=== PATIENT | female | born 1995 | race Caucasian/White ===

== ENCOUNTER 2017-08-28 07:14 | Emergency (ER) | payer BC, OTHER ==
--- NOTE | 2017-08-28 07:47 | ED Physician Documentation ---
PD HPI ABD PAIN - Stated complaint Stated Complaint: ABD PX - Chief complaint Chief Complaint: Abd Pain - History obtained from History obtained from: Patient, Family - History of Present Illness Timing - onset: Last night Timing - duration: Hours Timing - details: Gradual onset, Still present Quality: Sharp, Fullness/distended, Pain Location: RLQ Improved by: Laying still Worsened by: Position, Palpation Associated symptoms: Nausea. No: Vomiting Similar symptoms before: Diagnosis (R ovarian cyst) Recently seen: Not recently seen - Additional information Additional information: 22-year-old female with history of polycystic ovarian cyst disease and a prior history of a right 5 cm complex ovarian cyst has developed pain again in the right lower quadrant. She has been without an issue of pain over the past year and has had regular menstrual cycles. She did not have a regular menstrual cycle at the beginning of last month she has taken a test and the reference line did not show up. She denies any breast tenderness but does state that she has had some nausea. Review of Systems Constitutional: denies: Fever Eyes: denies: Decreased vision Ears: denies: Ear pain Nose: reports: Rhinorrhea / runny nose, Congestion Throat: denies: Sore throat Cardiac: denies: Chest pain / pressure, Palpitations Respiratory: reports: Cough. denies: Dyspnea GI: reports: Abdominal Pain, Nausea. denies: Vomiting : denies: Dysuria, Frequency Skin: denies: Rash Musculoskeletal: denies: Neck pain, Back pain, Extremity pain Neurologic: denies: Generalized weakness, Focal weakness, Numbness PD PAST MEDICAL HISTORY - Past Medical History FABRICATION SPECIALIST: Ovarian cysts - Past Surgical History Past Surgical History: Yes General: Cholecystectomy - Present Medications Home Medications: Ambulatory Orders Medication Instructions Recorded Confirmed Metformin HCl 500 mg 06/07/14 05/14/15 HYDROcod/ACETAM 5/325 [[place] 5/325] 1 - 2 ea PO Q6H PRN #15 tablet 05/14/15 HYDROcod/ACETAM 5/325 [[place] 5/325] 1 - 2 ea PO Q6H PRN #15 tablet 08/28/17 - Allergies Allergies/Adverse Reactions: Allergies Allergy/AdvReac Type Severity Reaction Status Date / Time No Known Drug Allergies Allergy Verified 06/07/14 11:31 - Social History Does the pt smoke?: No Smoking Status: Never smoker Does the pt drink ETOH?: No - Immunizations Immunizations are current?: No PD ED PE NORMAL - Vitals Vital signs reviewed: Yes (Hypertensive) - General General: Alert and oriented X 3, No acute distress, Well developed/nourished - HEENT HEENT: Atraumatic, PERRL, EOMI - Neck Neck: Supple, no meningeal sign - Cardiac Cardiac: RRR, No murmur - Respiratory Respiratory: No respiratory distress, Clear bilaterally - Abdomen Abdomen: Soft, Other (There is specific tenderness to the right lower quadrant below McBurney's point. ) - Back Back: No CVA TTP, No spinal TTP - Derm Derm: Normal color, Warm and dry, No rash - Extremities Extremities: No deformity, No edema - Neuro Neuro: No motor deficit, No sensory deficit Eye Opening: Spontaneous Motor: Obeys Commands Verbal: Oriented GCS Score: 15 - Psych Psych: Normal mood, Normal affect Results - Vitals Vitals: Vital Signs - 24 hr 08/28/17 08/28/17 07:19 10:57 Temperature 36.2 C L Heart Rate 75 57 L Respiratory 18 18 Rate Blood Pressure 151/101 H 131/75 H O2 Saturation 98 100 Oxygen O2 Source Room air - Labs Labs: Laboratory Tests 08/28/17 08/28/17 08/28/17 07:30 07:45 07:45 WBC 9.7 RBC 4.81 Hgb 14.7 Hct 42.2 MCV 87.7 MCH 30.5 MCHC 34.8 RDW 12.5 Plt Count 214 MPV 8.9 Neut # (Auto) 5.2 Lymph # (Auto) 3.4 [place] # (Auto) 1.0 Eos # (Auto) 0.1 Baso # (Auto) 0.0 Absolute Nucleated RBC 0.00 Nucleated RBC % 0.0 Sodium 135 Potassium 3.5 Chloride 101 Carbon Dioxide 26 Anion Gap 8.0 BUN 12 Creatinine 0.8 Estimated GFR (MDRD) 88 L Glucose 89 Calcium 9.0 Total Bilirubin 0.7 AST 21 ALT 19 Alkaline Phosphatase 60 Total Protein 7.6 Albumin 4.4 Globulin 3.2 Albumin/Globulin Ratio 1.4 Lipase 36 Urine Color YELLOW Urine Clarity HAZY Urine pH 6.5 Ur Specific [place] 1.025 Urine Protein NEGATIVE Urine Glucose (UA) NEGATIVE Urine Ketones NEGATIVE Urine Occult Blood NEGATIVE Urine Nitrite NEGATIVE Urine Bilirubin NEGATIVE Urine Urobilinogen 0.2 (NORMAL) Ur Leukocyte Esterase TRACE H Urine RBC None Seen Urine WBC 4-5 Ur Squamous Epith Cells MOD Squamous H Urine Bacteria Few Ur Microscopic Review INDICATED Urine Culture Comments NOT INDICATED Urine HCG, Qual NEGATIVE - Rads (name of study) pelvic ultrasound Radiology: Prelim report reviewed (Impression: 4.7 right ovarian cyst, normal flow to bilateral ovaries, no torsion, normal uterus.), EMP read indepedently, See rad report Procedures - Bedside sono Bedside sono by EMP: With use of bedside ultrasound the pelvis is imaged there is a 5 cm cystic mass in the right lower quadrant. PD MEDICAL DECISION MAKING - ED course Complexity details: reviewed results, re-evaluated patient, considered differential, d/w patient ED course: 22-year-old female with a history of polycystic ovarian disease has right lower quadrant pelvic pain and on ultrasound examination a 4.7 cm right ovarian cyst. She has improvement in her pain with use of fentanyl and Toradol and we will place her on some pain medication for a brief period. Departure - Departure Disposition: 01 Home, Self Care Clinical Impression: Ovarian cyst Qualifiers: Laterality: right Qualified Code(s): N83.201 - Unspecified ovarian cyst, right side Condition: Stable Instructions: ED Cyst Ovarian Follow-Up: [facility] [Provider Group] Prescriptions: HYDROcod/ACETAM 5/325 [[place] 5/325] 1 - 2 ea PO Q6H PRN #15 tablet PRN Reason: Pain Forms: Activity restrictions
[2017-08-28] MEDS ORDERED: ONDANSETRON 4 MG/2 ML VIAL IVP STA (07:52)
[2017-08-28] MEDS ORDERED: KETOROLAC 60 MG/2 ML VIAL IVP STA (07:52)
[2017-08-28 07:57] LABS: BASOPHILS % (AUTO) 0.1 %; EOSINOPHILS # (AUTO) 0.1 10^3/uL (0.0-0.7); EOSINOPHILS % (AUTO) 0.7 %; HGB - HEMOGLOBIN 14.7 g/dL (12.0-16.0); LYMPHOCYTES # (AUTO) 3.4 10^3/uL (1.5-3.5); LYMPHOCYTES % (AUTO) 35.3 %; MEAN CORPUSCULAR HEMOGLOBIN 30.5 pg (27.0-31.0); MEAN CORPUSCULAR HGB CONC 34.8 g/dL (32.0-36.0); MEAN CORPUSCULAR VOLUME 87.7 fL (81.0-99.0); MEAN PLATELET VOLUME 8.9 fL (7.9-10.8); MONOCYTES % (AUTO) 10.3 %; NEUTROPHILS # (AUTO) 5.2 10^3/uL (1.5-6.6); NEUTROPHILS % (AUTO) 53.6 %; PLT - PLATELET COUNT 214 10^3/uL (130-450); RED BLOOD COUNT 4.81 10^6/uL (4.20-5.40); RED CELL DISTRIBUTION WIDTH 12.5 % (12.0-15.0); WHITE BLOOD COUNT 9.7 x10^3/uL (4.8-10.8)
[2017-08-28 07:59] LABS: BILIRUBIN,URINE NEGATIVE (NEGATIVE); GLUCOSE, URINE (UA) NEGATIVE (NEGATIVE); KETONES,URINE (UA) NEGATIVE (NEGATIVE); LEUKOCYTE ESTERASE, URINE TRACE (NEGATIVE); NITRITE,URINE NEGATIVE (NEGATIVE); OCCULT BLOOD,URINE NEGATIVE (NEGATIVE); PH,URINE 6.5 PH (5.0-7.5); PROTEIN,URINE NEGATIVE (NEGATIVE); UROBILINOGEN,URINE 0.2 (NORMAL) E.U./dL (NORMAL)
[2017-08-28 08:00] LABS: CLARITY,URINE HAZY (CLEAR)
[2017-08-28 08:01] LABS: HCG UR QUAL NEGATIVE
[2017-08-28 08:10] LABS: ALBUMIN 4.4 g/dL (3.2-5.5); ALBUMIN/GLOBULIN RATIO 1.4 (1.0-2.2); BILIRUBIN,TOTAL 0.7 mg/dL (0.2-1.0); CREATININE 0.8 mg/dL (0.4-1.0); TOTAL PROTEIN 7.6 g/dL (6.7-8.2)
[2017-08-28 08:10] LABS: BACTERIA,URINE Few /HPF (None Seen); RBC,URINE None Seen /HPF (0-5); SQUAMOUS EPITHELIAL CELL,UR MOD Squamous (<= Few)
[2017-08-28] MEDS ORDERED: fentaNYL 100 MCG/2 ML VIAL IVP STA ×2 (08:53→11:39)
--- NOTE | 2017-08-28 11:25 | Ultrasound Report ---
PELVIC ULTRASOUND: 08/28/2017 CLINICAL INDICATION: Right-sided pain. TECHNIQUE: Transabdominal pelvic ultrasound performed for global evaluation. Transvaginal pelvic ultrasound performed for detailed evaluation. Real-time scanning performed and static images obtained with Doppler. FINDINGS: The uterus is anteverted, measuring 8.3 x 3.5 x 4.9 cm. The endometrium measures 11 mm. No focal myometrial lesion is seen. The right ovary measures 5.7 x 4.7 x 4.5 cm, and contains a 4.7 x 4.3 x 4.2 cm cyst. Normal flow is seen to the surrounding ovarian parenchyma. The left ovary measures 2.3 x 1.6 x 1.3 cm, and appears unremarkable. No free fluid is present. IMPRESSION: 4.7 CM RIGHT OVARIAN CYST. NORMAL FLOW TO THE SURROUNDING OVARIAN TISSUE. TD: 08/28/2017 10:49
[2017-08-28] MEDS ORDERED: fentaNYL 100 MCG/2 ML VIAL ONE (11:48)
[2017-08-28 11:50] VITALS: BP 128/74
== END 2017-08-28 11:51 | disposition home or self-care (01) ==
LOC: ED 07:14
DX: N83.201 Unspecified ovarian cyst, right side (principal)
CPT/HCPCS: 36415; 76830; 76856; 80053; 81001; 81003; 81025; 83690; 85025; 87086; 93976; 96374; 96375; 96376; 99283; 99284

== ENCOUNTER 2017-09-16 13:40 | Emergency (ER) | payer BC ==
[2017-09-16 14:08] LABS: BILIRUBIN,URINE NEGATIVE (NEGATIVE); GLUCOSE, URINE (UA) NEGATIVE (NEGATIVE); KETONES,URINE (UA) NEGATIVE (NEGATIVE); LEUKOCYTE ESTERASE, URINE TRACE (NEGATIVE); NITRITE,URINE NEGATIVE (NEGATIVE); OCCULT BLOOD,URINE SMALL (NEGATIVE); PH,URINE 6.5 PH (5.0-7.5); PROTEIN,URINE NEGATIVE (NEGATIVE); UROBILINOGEN,URINE 0.2 (NORMAL) E.U./dL (NORMAL)
[2017-09-16 14:09] LABS: CLARITY,URINE HAZY (CLEAR); HCG UR QUAL NEGATIVE
[2017-09-16 14:14] LABS: BACTERIA,URINE Few /HPF (None Seen); SQUAMOUS EPITHELIAL CELL,UR FEW Squamous (<= Few)
--- NOTE | 2017-09-16 14:34 | ED Physician Documentation ---
PD HPI FEMALE - Stated complaint Stated Complaint: FEMALE - Chief complaint Chief Complaint: UTI - History obtained from History obtained from: Patient - History of Present Illness Timing - onset: How many days ago (3) Timing - duration: Days (3) Timing - details: Gradual onset, Still present, Waxing and waning Associated symptoms: Abdominal pain, Dysuria, Urinary frequency Contributing factors: No: Similar symptoms before: Diagnosis (UTI) Recently seen: Emergency Dept - Additional information Additional information: 22-year-old female with a history of polycystic ovarian disease was recently been in the emergency department for right ovarian cyst has developed urinary symptoms with urinary urgency frequency and dysuria. She is not having flank pain she is not having fever she is having some intermittent nausea associated with bladder pain. Review of Systems Constitutional: reports: Chills. denies: Fever Eyes: denies: Decreased vision Ears: denies: Ear pain Nose: denies: Congestion Throat: denies: Sore throat Respiratory: denies: Cough GI: reports: Abdominal Pain, Nausea. 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 - Past Surgical History Past Surgical History: Yes General: Cholecystectomy - Present Medications Home Medications: Ambulatory Orders Medication Instructions Recorded Confirmed Sulfamethoxazole/Trimethoprim 1 each PO BID #10 tablet 09/16/17 [Sulfamethoxazole-Tmp Ds Tablet] - Allergies Allergies/Adverse Reactions: Allergies Allergy/AdvReac Type Severity Reaction Status Date / Time No Known Drug Allergies Allergy Verified 06/07/14 11:31 - Social History Does the pt smoke?: No Smoking Status: Never smoker Does the pt drink ETOH?: No Does the pt have substance abuse?: No - Immunizations Immunizations are current?: No - POLST Patient has POLST: No PD ED PE NORMAL - Vitals Vital signs reviewed: Yes (hypertensive ) - General General: Alert and oriented X 3, No acute distress, Well developed/nourished - HEENT HEENT: Atraumatic, PERRL, EOMI - Neck Neck: Supple, no meningeal sign - Cardiac Cardiac: RRR, No murmur - Respiratory Respiratory: No respiratory distress, Clear bilaterally - Abdomen Abdomen: Soft, Non tender - Back Back: No CVA TTP, No spinal TTP - Derm Derm: Normal color, Warm and dry, No rash - Extremities Extremities: No deformity, No edema - Neuro Neuro: Alert and oriented X 3, No motor deficit, No sensory deficit, Normal speech Eye Opening: Spontaneous Motor: Obeys Commands Verbal: Oriented GCS Score: 15 - Psych Psych: Normal mood, Normal affect Results - Vitals Vitals: Vital Signs - 24 hr 09/16/17 13:48 Temperature 36.3 C L Heart Rate 91 Respiratory 18 Rate Blood Pressure 142/92 H O2 Saturation 100 Oxygen O2 Source Room air - Labs Labs: Laboratory Tests 09/16/17 14:03 Urine Color YELLOW Urine Clarity HAZY Urine pH 6.5 Ur Specific [place] 1.020 Urine Protein NEGATIVE Urine Glucose (UA) NEGATIVE Urine Ketones NEGATIVE Urine Occult Blood SMALL H Urine Nitrite NEGATIVE Urine Bilirubin NEGATIVE Urine Urobilinogen 0.2 (NORMAL) Ur Leukocyte Esterase TRACE H Urine RBC 6-10 H Urine WBC 11-25 H Ur Squamous Epith Cells FEW Squamous Urine Bacteria Few Ur Microscopic Review INDICATED Urine Culture Comments INDICATED Urine HCG, Qual NEGATIVE PD MEDICAL DECISION MAKING - ED course Complexity details: reviewed results, re-evaluated patient, considered differential, d/w patient, d/w family ED course: 22-year-old female with urinary tract infection is administered Pyridium here in the emergency department for acute symptoms and we will start her on some sulfamethoxazole trimethoprim. - Sepsis Event Vital Signs: Vital Signs - 24 hr 09/16/17 13:48 Temperature 36.3 C L Heart Rate 91 Respiratory 18 Rate Blood Pressure 142/92 H O2 Saturation 100 Oxygen O2 Source Room air Departure - Departure Disposition: 01 Home, Self Care Clinical Impression: Urinary tract infection Qualifiers: Urinary tract infection type: acute cystitis Hematuria presence: without hematuria Qualified Code(s): N30.00 - Acute cystitis without hematuria Condition: Stable Instructions: ED UTI Cystitis Female Follow-Up: [facility] [Provider Group] Prescriptions: Sulfamethoxazole/Trimethoprim [Sulfamethoxazole-Tmp Ds Tablet] 1 each PO BID # 10 tablet
[2017-09-16] MEDS ORDERED: PHENAZOPYRIDINE 100 MG TABLET PO STA (14:37)
[2017-09-16 14:48] VITALS: BP 130/90
== END 2017-09-16 14:47 | disposition home or self-care (01) ==
LOC: ED 13:40
DX: N30.00 Acute cystitis without hematuria (principal)
CPT/HCPCS: 81001; 81025; 87086; 87181; 99283; A9270; 81003

== ENCOUNTER 2017-11-10 22:44 | Emergency (ER) | payer BC ==
[2017-11-10] MEDS ORDERED: SODIUM CHLORIDE 0.9% 1,000 ML IV ONE (22:57)
[2017-11-10] MEDS ORDERED: METOCLOPRAMIDE 10 MG/2 ML VIAL IVP STA (22:57)
[2017-11-10 23:13] LABS: BILIRUBIN,URINE NEGATIVE (NEGATIVE); GLUCOSE, URINE (UA) NEGATIVE (NEGATIVE); KETONES,URINE (UA) NEGATIVE (NEGATIVE); LEUKOCYTE ESTERASE, URINE NEGATIVE (NEGATIVE); NITRITE,URINE NEGATIVE (NEGATIVE); OCCULT BLOOD,URINE NEGATIVE (NEGATIVE); PROTEIN,URINE NEGATIVE (NEGATIVE); UROBILINOGEN,URINE 0.2 (NORMAL) E.U./dL (NORMAL)
[2017-11-10 23:15] LABS: CLARITY,URINE CLEAR (CLEAR)
[2017-11-10 23:20] LABS: BASOPHILS % (AUTO) 0.1 %; EOSINOPHILS % (AUTO) 0.2 %; HGB - HEMOGLOBIN 14.9 g/dL (12.0-16.0); LYMPHOCYTES # (AUTO) 3.8 10^3/uL (1.5-3.5); LYMPHOCYTES % (AUTO) 32.2 %; MEAN CORPUSCULAR HEMOGLOBIN 30.4 pg (27.0-31.0); MEAN CORPUSCULAR VOLUME 89.5 fL (81.0-99.0); MEAN PLATELET VOLUME 8.6 fL (7.9-10.8); MONOCYTES # (AUTO) 0.7 10^3/uL (0.0-1.0); MONOCYTES % (AUTO) 6.3 %; NEUTROPHILS # (AUTO) 7.2 10^3/uL (1.5-6.6); NEUTROPHILS % (AUTO) 61.2 %; PLT - PLATELET COUNT 237 10^3/uL (130-450); RED BLOOD COUNT 4.88 10^6/uL (4.20-5.40); RED CELL DISTRIBUTION WIDTH 14.8 % (12.0-15.0); WHITE BLOOD COUNT 11.8 x10^3/uL (4.8-10.8)
[2017-11-10] MEDS ORDERED: fentaNYL 100 MCG/2 ML VIAL IVP STA (23:20)
[2017-11-10 23:37] LABS: ALBUMIN 4.5 g/dL (3.2-5.5); ALBUMIN/GLOBULIN RATIO 1.3 (1.0-2.2); BILIRUBIN,TOTAL 0.9 mg/dL (0.2-1.0); CALCIUM 9.1 mg/dL (8.5-10.3); CREATININE 0.7 mg/dL (0.4-1.0); MAGNESIUM 2.1 mg/dL (1.7-2.8); TOTAL PROTEIN 7.9 g/dL (6.7-8.2)
[2017-11-10 23:45] LABS: HCG,QUALITATIVE BLOOD NEGATIVE
[2017-11-11] MEDS ORDERED: KETOROLAC 60 MG/2 ML VIAL IVP STA (00:19)
[2017-11-11] MEDS ORDERED: PROMETHAZINE INJ 25 MG in SODIUM CHLORIDE 0.9% 50 ML IV STA (00:19)
--- NOTE | 2017-11-11 01:20 | ED Physician Documentation ---
History of Present Illness - Stated complaint Stated Complaint: LOW ABD PX - Chief complaint Chief Complaint: Abd Pain - Additonal information Additional information: 22-year-old female presents to the emergency department complaining of lower abdominal pain which started this evening 45 minutes prior to arrival in the emergency department. The patient reports drinking alcohol this evening and then having sex. The patient reports the pain started after sex. The patient denies Vaginal bleeding, vaginal discharge, dysuria or diarrhea. No relieving factors. No attempts at symptom management. No other associated symptoms. 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, Other Other Past Medical History: PCOS - Past Surgical History Past Surgical History: Yes General: Cholecystectomy /MARKETING FINANCIAL ANALYST: Other - Present Medications Home Medications: Ambulatory Orders Medication Instructions Recorded Confirmed No Known Home Medications [No 11/10/17 11/10/17 Known Home Medications] - Allergies Allergies/Adverse Reactions: Allergies Allergy/AdvReac Type Severity Reaction Status Date / Time No Known Drug Allergies Allergy Verified 11/10/17 22:54 - Social History Does the pt smoke?: No Smoking Status: Never smoker Does the pt drink ETOH?: Yes Does the pt have substance abuse?: No - Immunizations Immunizations are current?: No - POLST Patient has POLST: No PD ED PE NORMAL - General General: Alert and oriented X 3, Other (The patient appears to be in pain and discomfort) - HEENT HEENT: Atraumatic, PERRL, EOMI, Ears normal - Neck Neck: Supple, no meningeal sign - Cardiac Cardiac: RRR, Strong equal pulses, Other (Tachycardia) - Respiratory Respiratory: No respiratory distress, Clear bilaterally - Abdomen Abdomen: Soft, Non distended. No: Non tender (The patient is tender to palpation throughout her entire abdomen, there is no rebound or peritoneal signs ) - Derm Derm: Normal color - Extremities Extremities: No deformity, No edema - Neuro Neuro: Alert and oriented X 3, Normal speech - Psych Psych: Normal mood Results - Vitals Vitals: Vital Signs - 24 hr 11/10/17 11/10/17 11/11/17 22:48 23:53 00:20 Temperature 36.6 C Heart Rate 106 H 68 76 Respiratory 18 16 18 Rate Blood Pressure 153/111 H 106/66 132/75 H O2 Saturation 96 98 100 11/11/17 01:55 Temperature Heart Rate 66 Respiratory 17 Rate Blood Pressure 121/91 H O2 Saturation 100 Oxygen O2 Source Room air - Labs Labs: Laboratory Tests 11/10/17 11/10/17 11/10/17 23:07 23:10 23:10 WBC 11.8 H RBC 4.88 Hgb 14.9 Hct 43.7 MCV 89.5 MCH 30.4 MCHC 34.0 RDW 14.8 Plt Count 237 MPV 8.6 Neut # (Auto) 7.2 H Lymph # (Auto) 3.[address] [place] # (Auto) 0.7 Eos # (Auto) 0.0 Baso # (Auto) 0.0 Absolute Nucleated RBC 0.00 Nucleated RBC % 0.0 Sodium 138 Potassium 3.3 L Chloride 103 Carbon Dioxide 24 Anion Gap 11.0 BUN 5 L Creatinine 0.7 Estimated GFR (MDRD) 103 Glucose 92 Calcium 9.1 Magnesium 2.1 Total Bilirubin 0.9 AST 24 ALT 17 Alkaline Phosphatase 61 Total Protein 7.9 Albumin 4.5 Globulin 3.4 Albumin/Globulin Ratio 1.3 Lipase 308 H Serum HCG, Qual Urine Color YELLOW Urine Clarity CLEAR Urine pH 6.0 Ur Specific [place] <=1.005 Urine Protein NEGATIVE Urine Glucose (UA) NEGATIVE Urine Ketones NEGATIVE Urine Occult Blood NEGATIVE Urine Nitrite NEGATIVE Urine Bilirubin NEGATIVE Urine Urobilinogen 0.2 (NORMAL) Ur Leukocyte Esterase NEGATIVE Ur Microscopic Review NOT INDICATED Urine Culture Comments NOT INDICATED 11/10/17 11/11/17 23:10 01:35 WBC RBC Hgb Hct MCV MCH MCHC RDW Plt Count MPV Neut # (Auto) Lymph # (Auto) [place] # (Auto) Eos # (Auto) Baso # (Auto) Absolute Nucleated RBC Nucleated RBC % Sodium Potassium Chloride Carbon Dioxide Anion Gap BUN Creatinine Estimated GFR (MDRD) Glucose Calcium Magnesium Total Bilirubin AST ALT Alkaline Phosphatase Total Protein Albumin Globulin Albumin/Globulin Ratio Lipase 132 H Serum HCG, Qual NEGATIVE Urine Color Urine Clarity Urine pH Ur Specific [place] Urine Protein Urine Glucose (UA) Urine Ketones Urine Occult Blood Urine Nitrite Urine Bilirubin Urine Urobilinogen Ur Leukocyte Esterase Ur Microscopic Review Urine Culture Comments - Rads (name of study) Ultrasound abdomen Radiology: Final report received (1. Status post cholecystectomy 2. Mildly dilated common bile and pancreatic ducts. No obvious choledocholithiasis. Consider further evaluation with MRCP to exclude lower common bile duct stone or obstructing lesion) Pelvic ultrasound Radiology: Final report received (Possible endometrial polyp. Significant interval decrease in size of right ovarian cyst from previous scan of 08/28/2017 ) PD MEDICAL DECISION MAKING - ED course ED course: I discussed with the patient the findings on her workup and the recommendation from the radiologist. I advised that the patient would benefit from admission to the hospital for an MRCP in the morning. The patient understands the findings but feels much improved and her symptoms have completely resolved. The patient has refused admission and would prefer to do the testing as an outpatient. Since the patient is improving and her lab work shows no evidence of an obstructive etiology this appears reasonable. The patient's lipase is most likely elevated secondary to her alcohol consumption this evening. I also explained to the patient the findings on her pelvic ultrasound and recommended keeping her appointment with HEAD OF PHYSICS to further evaluate these findings. The patient understands and agrees. I discussed warning signs. I advised that the patient should return to the emergency department at any point for reevaluation or worsening symptoms or any concerns - Sepsis Event Vital Signs: Vital Signs - 24 hr 11/10/17 11/10/17 11/11/17 22:48 23:53 00:20 Temperature 36.6 C Heart Rate 106 H 68 76 Respiratory 18 16 18 Rate Blood Pressure 153/111 H 106/66 132/75 H O2 Saturation 96 98 100 11/11/17 01:55 Temperature Heart Rate 66 Respiratory 17 Rate Blood Pressure 121/91 H O2 Saturation 100 Oxygen O2 Source Room air Departure - Departure Disposition: 01 Home, Self Care Clinical Impression: Elevated lipase, Abdominal ultrasound, abnormal Abdominal pain Qualifiers: Abdominal location: unspecified location Qualified Code(s): R10.9 - Unspecified abdominal pain Condition: Good Instructions: Abdominal Pain Comments: You declined admission for a MRCP to further evaluate the finding seen on ultrasound. You have decided that he would prefer to do this test as an outpatient since her pain is under much better control. Please ask your primary care physician to arrange for an outpatient MRCP. Please also follow- up with your HEAD OF PHYSICS as scheduled. Please return to the emergency department immediately for any worsening or any concerns
--- NOTE | 2017-11-11 01:49 | Ultrasound Report ---
Procedure Date: 11/11/2017 Accession Number: [id number] / [id number] Procedure: US - Abdomen Limited CPT Code: FULL RESULT: EXAM: ABDOMEN ULTRASOUND LIMITED, RUQ EXAM DATE: 11/11/2017 01:13 AM. CLINICAL HISTORY: Abdominal pain, increased lipase. COMPARISON: None. TECHNIQUE: Real-time scanning was performed with static images obtained. FINDINGS: Liver: Suboptimal visualization due to patient body habitus. No obvious mass. Grossly normal echotexture. 14.5 cm. Main portal vein flow: Hepatopetal. Gallbladder: The gallbladder has been removed. Biliary System: CBD measures 8.5 mm. No intrahepatic or extrahepatic ductal dilatation. Other: No right hydronephrosis. The pancreatic duct measures up to 4 mm in diameter. IMPRESSION: 1. Status post cholecystectomy. 2. Mildly dilated common bile and pancreatic ducts. No obvious choledocholithiasis. Consider further evaluation with MRCP to exclude a lower common bile duct stone or obstructing lesion. RADIA
--- NOTE | 2017-11-11 02:03 | Ultrasound Report ---
Procedure Date: 11/11/2017 Accession Number: [id number] / [id number] Procedure: US - Pelvic Complete CPT Code: FULL RESULT: EXAM: PELVIC ULTRASOUND EXAM DATE: 11/11/2017 12:41 AM. CLINICAL HISTORY: Pain. COMPARISON: PEL NON OB W/TV DOP LTD 08/28/2017 9:35 AM. TECHNIQUE: Realtime transabdominal pelvic scan performed to identify the uterus and adnexa and as an overview of other pelvic structures, followed by transvaginal scan to provide greater detail of the uterus and adnexa, with static image documentation. FINDINGS: Uterus: 7.7 x 4.5 x 3.8 cm, volume 69 cc. Anteverted position. Normal overall size and echotexture. Masses: None. Endometrium: 8 mm. There is an echogenic nodule in the fundal portion of the endometrial canal, measuring 1.4 x 1.3 x 0.7 cm, suspicious for an endometrial polyp. Cervix: Unremarkable. Right Ovary: 3.7 x 3.6 x 2.9 cm, volume 20 cc. A 2.3 cm follicle is present. Left Ovary: 1.6 x 1.2 x 0.9 cm, volume 1 cc. Normal echotexture and blood flow. Free Fluid: None. Other: None. IMPRESSION: Possible endometrial polyp. Significant interval decrease in size of right ovarian cyst from previous scan of 08/28/2017. RADIA
[2017-11-11] MEDS ORDERED: HYDROcod/ACET 5/325 Prepack 4 PO STA (02:22)
[2017-11-11 02:31] VITALS: BP 125/68
== END 2017-11-11 02:31 | disposition home or self-care (01) ==
LOC: ED 22:44
DX: R74.8 Abnormal levels of other serum enzymes (principal); R93.5 Abnormal findings on diagnostic imaging of other abdominal regions, including retroperitoneum; R10.9 Unspecified abdominal pain; N83.201 Unspecified ovarian cyst, right side
CPT/HCPCS: 36415; 76705; 76830; 76856; 80053; 81003; 83690; 83735; 84703; 85025; 96361; 96365; 96375; 99284; J2765; J7040; 81001; 87086

== ENCOUNTER 2017-11-23 10:25 | Outpatient (CLI) | payer BC ==
[2017-11-23 11:42] LABS: THYROID STIMULATING HORMONE 0.96 uIU/mL (0.34-5.60)
[2017-11-23 12:10] LABS: FOLLICLE STIMULATING HORMONE 7.81 mIU/mL; LUTEINIZING HORMONE 6.4 mIU/mL
== END 2017-11-23 10:26 | disposition home or self-care (01) ==
LOC: LAB 10:25
PROVIDERS: ATTEND Obstetrics & Gynecology
DX: E28.2 Polycystic ovarian syndrome (principal)
CPT/HCPCS: 36415; 82670; 83001; 83002; 84443

== ENCOUNTER 2017-12-21 10:06 | Outpatient (CLI) | payer BC | END 2017-12-21 10:07 | disposition home or self-care (01) | LOC: LAB 10:06 | PROVIDERS: ATTEND Obstetrics & Gynecology | DX: N97.9 Female infertility, unspecified (principal) | CPT/HCPCS: 36415; 81599; 82397 ==